=== PATIENT | female | born 1945 | race African-American/Black ===

== ENCOUNTER 2021-12-29 14:28 | Outpatient (RCR) | payer MEDICARE, MEDICAID, SELFPAY | END 2022-01-12 09:23 | disposition home or self-care (01) | LOC: HO.WCC 14:28 | PROVIDERS: PCP Internal Medicine; Referring Provider Internal Medicine; Visit Provider Physician Assistant | DX: E11.621 Type 2 diabetes mellitus with foot ulcer (principal); L89.621 Pressure ulcer of left heel, stage 1; E11.65 Type 2 diabetes mellitus with hyperglycemia; E11.40 Type 2 diabetes mellitus with diabetic neuropathy, unspecified; E11.51 Type 2 diabetes mellitus with diabetic peripheral angiopathy without gangrene; E11.22 Type 2 diabetes mellitus with diabetic chronic kidney disease; N18.9 Chronic kidney disease, unspecified; L60.0 Ingrowing nail; L84 Corns and callosities; Z92.3 Personal history of irradiation; Z79.84 Long term (current) use of oral hypoglycemic drugs | CPT/HCPCS: 99212; 99213 ==